=== PATIENT | male | born 1955 | race Asian ===

== ENCOUNTER 2021-11-01 23:22 | Emergency (ER) | payer OTHER, MEDICAID ==
[~2021-11-01] VITALS: Ht 171.4 cm; Wt 56.4 kg
[~2021-11-01 23:22] MED LIST: ALLO100T PO; LISI40TA9 PO; UNKN BP MED
[2021-11-01] MEDS ORDERED: APIX5TAB PO (23:41)
[2021-11-02 02:40] VITALS: BP 134/83
== END 2021-11-02 04:50 | disposition home or self-care (01) ==
LOC: EMS 23:23
DX: T82.838A Hemorrhage due to vascular prosthetic devices, implants and grafts, initial encounter (principal); I10 Essential (primary) hypertension; F17.210 Nicotine dependence, cigarettes, uncomplicated
CPT/HCPCS: 99282; Z7502

== ENCOUNTER 2023-05-17 13:30 | Emergency (ER) | payer OTHER ==
[~2023-05-17] VITALS: Ht 172.7 cm; Wt 72.7 kg
[~2023-05-17 13:30] MED LIST changes: +APIX5TAB PO; -UNKN BP MED
[2023-05-17 13:33] VITALS: TEMP 98.4
[2023-05-17] MEDS ORDERED: HYDR100T28 PO (13:35)
[2023-05-17] MEDS ORDERED: METO-416 PO (13:35)
[2023-05-17] MEDS ORDERED: ATOR20TA65 PO (13:35)
[2023-05-17] MEDS ORDERED: SEVE2.4P3 PO (13:35)
[2023-05-17 18:45] VITALS: BP 108/71; PULSE 66; RESP 16
== END 2023-05-17 19:06 | disposition home or self-care (01) ==
LOC: EMS 13:33
DX: T82.838A Hemorrhage due to vascular prosthetic devices, implants and grafts, initial encounter (principal); I10 Essential (primary) hypertension; F17.210 Nicotine dependence, cigarettes, uncomplicated; Z79.899 Other long term (current) drug therapy; Y83.8 Other surgical procedures as the cause of abnormal reaction of the patient, or of later complication, without mention of misadventure at the time of the procedure
CPT/HCPCS: 99281; Z7502

== ENCOUNTER 2023-10-01 13:24 | Emergency (ER) | payer OTHER ==
[~2023-10-01] VITALS: Ht 167.6 cm; Wt 54.5 kg
[~2023-10-01 13:24] MED LIST changes: +ATOR20TA65 PO; +HYDR100T28 PO; +METO-416 PO; +SEVE2.4P3 PO
[2023-10-01] MEDS ORDERED: TRANEXAMIC ACID 1,000 MG/10 ML VIAL TP ONE (13:30)
[2023-10-01] MEDS ORDERED: GELATIN SPONGE,ABSORBABLE 50 MM TP ONE (13:30)
[2023-10-01 13:33] VITALS: TEMP 98.1
[2023-10-01 15:31] VITALS: PULSE 69
[2023-10-01] MEDS ORDERED: CloNIDine HCL 0.1 MG TABLET PO ONE (16:00)
[2023-10-01] MEDS ORDERED: AmLODIPine BESYLATE 5 MG TABLET PO ONE (16:00)
[2023-10-01 16:52] VITALS: BP 182/64; RESP 16
== END 2023-10-01 17:16 | disposition home or self-care (01) ==
LOC: EMS 13:25
DX: T82.838A Hemorrhage due to vascular prosthetic devices, implants and grafts, initial encounter (principal); I12.0 Hypertensive chronic kidney disease with stage 5 chronic kidney disease or end stage renal disease; N18.6 End stage renal disease; Z99.2 Dependence on renal dialysis; F17.210 Nicotine dependence, cigarettes, uncomplicated; Z98.890 Other specified postprocedural states
CPT/HCPCS: 99284; 82962; J3490; 99283